=== PATIENT | female | born 1995 | race Caucasian/White ===

== ENCOUNTER 2017-01-11 16:00 | Inpatient (IN) | payer OTHER ==
[~2017-01-11] VITALS: Ht 167.6 cm; Wt 104.3 kg
[~2017-01-11 16:00] MED LIST: CYCL-319 PO; IBUP-1542 PO; LACTATED RINGER'S 1,000 ML IV PRN; PREN1TAB49 PO
[2017-01-11 16:18] VITALS: Ht 167.6 cm; Wt 104.3 kg
[2017-01-11 16:21] VITALS: BP 166/90; PULSE 86; RESP 18
[2017-01-11] MEDS ORDERED: OXYTOCIN 30 UNITS/LR 500 ML IV PRN (17:30)
[2017-01-11] MEDS ORDERED: LIDOCAINE 1% (MPF) 30 ML INJ INJ PRN (17:30)
[2017-01-11] MEDS ORDERED: AMPICILLIN 2 GM/NS (PMX) 100 ML IV ONE (17:30)
[2017-01-11] MEDS ORDERED: LABETALOL HCL 20MG INJ IV ONE (17:30)
[2017-01-11] MEDS ORDERED: MISOPROSTOL 200 MCG TAB PR PRN (17:30)
[2017-01-11] MEDS ORDERED: OXYTOCIN 30 UNITS/LR 500 ML IV SCH (17:30)
[2017-01-11] MEDS ORDERED: METHYLERGONOVINE 0.2 MG INJ IM PRN (17:30)
[2017-01-11] MEDS ORDERED: CARBOPROST 250 MCG INJ IM PRN (17:30)
[2017-01-11] MEDS ORDERED: BUTORPHANOL 2 MG INJ IV PRN (17:30)
[2017-01-11] MEDS ORDERED: MAGNESIUM SULFATE 4 GM/100 ML 100 ML IVPB ONE (17:30)
[2017-01-11] MEDS ORDERED: IBUPROFEN 600 MG TAB PO PRN (17:30)
--- NOTE | 2017-01-11 17:32 | HP ---
Date/Time of Note Date/Time of Note DATE: 01/11/17 TIME: 17:29 OB - History Hx of Present Free Text/Dictation 35 years old female 4 para 2 history one previous vaginal delivery and one section EDC of January 20, 2017 admitted to [facility] in labor she was originally was a scheduled for repeat C- section for January 20 but since she started having contractions today she came to the hospital being prepared after complete evaluation for repeat Estimated Due Date: Jan 20, 2017 : 4 Para: 2 Care: Limited Care Ultrasounds: Normal mid trimester US Obstetrical Complications: Gestational Diabetes Medical Complications: None Past Family/Social History * Past Medical, Surgical, Family and Obstetric Histories reviewed from chart. Rubella: immune RPR/VDRL: Negative GBS Status: Negative HBsAG: Negative OB Admission Exam Vital Signs Vital Signs Vital Signs Date Time Temp Pulse Resp B/P Pulse Ox O2 Delivery O2 Flow Rate FiO2 01/11/17 16:21 98.1 86 18 166/90 Physical Exam HEENT: WNL Heart: Rhythm Normal Abdomen: WNL Extremities: Normal Reflexes: Normal Accelerations: Accelerations Present Varibility: Moderate Contractions on Admission: < 5 Minutes Apart Intensity: Moderate LEONIDES VELA MD Jan 11, 2017 17:32
[2017-01-11] MEDS: LACTATED RINGER'S 1,000 ML IV SCH (17:40)
[2017-01-11 18:03] LABS: ABNORMAL IP MESSAGE 1; BASOPHILS % 0.3 % (0.0-2.0); EOSINOPHILS % 0.4 % (0.0-7.0); HEMATOCRIT 39.5 % (37.0-47.0); HEMOGLOBIN 13.7 g/dl (12.0-16.0); LYMPHOCYTES # 2.9 10^3/ul (0.8-2.9); LYMPHOCYTES % 29.7 % (15.0-51.0); MEAN CORPUSCULAR HEMOGLOBIN 29.2 pg (29.0-33.0); MEAN CORPUSCULAR HGB CONC 34.7 g/dl (32.0-37.0); MEAN CORPUSCULAR VOLUME 84.2 fl (82.0-101.0); MEAN PLATELET VOLUME 13.3 fl (7.4-10.4); MONOCYTE # 0.6 10^3/ul (0.3-0.9); MONOCYTES % 6.7 % (0.0-11.0); NEUTROPHILS % 62.3 % (39.0-77.0); PLATELET COUNT 219 10^3/UL (140-415); RED BLOOD COUNT 4.69 10^6/ul (4.20-5.40); WHITE BLOOD COUNT 9.6 10^3/ul (4.8-10.8)
[2017-01-11 18:14] LABS: INR 0.89; PT RATIO 0.9
[2017-01-11 18:15] LABS: POSITIVE DIFF @See below
[2017-01-11 18:16] LABS: ALBUMIN 3.6 g/dl (3.3-4.9); BILIRUBIN,INDIRECT 0.2 mg/dl (0-1.1); BILIRUBIN,TOTAL 0.2 mg/dl (0.2-1.3); CREATININE 0.46 mg/dl (0.44-1.00); POTASSIUM 4.1 mmol/L (3.5-5.1); TOTAL PROTEIN 7.2 g/dl (6.1-8.1); URIC ACID 4.4 mg/dl (3.1-7.9)
--- NOTE | 2017-01-11 18:20 | OPR ---
Operative Report Planned Procedure Free Text/Dictation 38 weeks 5 days history of previous admitted to [facility] in active labor being prepared for repeat Procedure date Jan 11, 2017 Procedure(s) Repeat Performed by: LEONIDES VELA MD Assisting provider: DARIEN RAYA MD Anesthesiologist: SADIA ROMAN MD Pre-procedure diagnosis The 8 weeks 5 days , history of previous in labor, breech presentation Anesthesia Type: spinal Procedure Description Under satisfactory spinal [] anesthesia, the patient was prepped and draped and placed in a supine position, tilted to the left. Pfannenstiel incision was made , carried through the subcutaneous tissue. Bleeders brought under control with electrocautery. Fascia incised to the length of the incision. Rectus muscles from the fascia, divided midline. Peritoneum exposed, entered through a transverse incision. Exploration of abdomen revealed gravid uterus. Normal- appearing tubes and ovaries bladder flap was developed. Transverse incision was made in the lower segment of the uterus. Amniotic sac ruptured. Clear [] amniotic fluid noted. Live baby boy was delivered from anthony breech presentation shoulders delivered without any difficulty head delivered with Mauriceau maneuver [] Nasal oropharyngeal suction was performed. The baby was handed to the team for immediate attention. placenta delivered manually intact. Uterine cavity was cleaned with wet sponge and drainage established. Uterus closed in 2 layers using [] Monocryl #1 in continuous fashion. Peritoneal cavity irrigated with warm saline. Sponge, needle and instrument count reported to be correct. Abdominal peritoneum closed with 2-0 chromic continuously. Rectus muscle approximated with [few interrupted 2-0 chromic catgut]. Fascia closed with [] #1 PDA, subcutaneous tissue approximated with several interrupted 2-0 chromic catgut skin closed with chino. Estimated blood loss 6-700 cc. Urine bag contained [200]mL of clear urine patient tolerated procedure well transferred to recovery room in good condition Post-Procedure Findings: Live Baby boy 9 and 9 Specimen removed: No Complications: None Disposition: other (Recovery) Physician Certification I, the undersigned physician, hereby certify that I have discussed the procedure described in this consent form with this patient (or the patient's legal sales and merchandising representative), including: * The risk and benefits of the procedure; * Any adverse reactions that may reasonably be expected to occur; * Any alternative efficacious methods of treatment which may be medically viable ; * The potential problems that may occur during recuperation; * Potential for blood transfusion and associated risks/benefits; and * Any research or economic interest I may have regarding this treatment. I further certify that the patient/legally responsible person was encouraged to ask question and that all questions were answered. LEONIDES VELA MD Jan 11, 2017 18:20
--- NOTE | 2017-01-11 18:22 | RADRPT ---
PROCEDURE: US OB LIMITED FOR WEIGHT EVALUATION CLINICAL INDICATION: Induction TECHNIQUE: Multiple sonographic images of the pelvis were obtained. Transabdominal imaging only w as performed. The images were reviewed on a PACS workstation. Image quality: Satisfactory. COMPARISON: No prior studies are available for comparison. FINDINGS: Roberts : Number of fetuses: 1 GENERAL EVALUATION: Cardiac activity: Present. FHR by 163 bpm Presentation: Cephalic. Placenta: Placenta site: Posterior right. Heterogeneous with calcifications and indentations in keep ing with mature grade 2 placenta. Cervix (transabdominal): Not evaluated DATING: EGA by dates: 36 wks 6 days SCOTTIE by dates: February 02, 2017 BIOMETRY: BPD = 9.3 cm , 37 wk 6 d (86th percentile) HC = 33.3cm , 38 wk 0 d (52nd percentile) AC = 37 cm , 41 wk 1 d (greater than 97%) FL = 7.5 cm , 38 wk 4d (87th percentile) Composite sonographic age: 38 wk 6 d plus or minus 2 weeks 5 days Estimated due date by ultrasound measurements: January 19, 2017 EFW 3885 grams, greater than 97 percentile for gestational age. ANATOMY: Not performed IMPRESSION: 1. Single living fetus in the cephalic presentation. 2. Fetus is large for dates. Estimated weight is 3885 grams that is greater than the 97th perc entile for gestational age. 3. Posterior right placenta is mature (grade 2). < RPTAT: HCTS Physician Anju Date Time Electronically viewed and signed by Mark Philippe Physician on 01/11/2017 18:21 CS/
--- NOTE | 2017-01-11 18:24 | RADRPT ---
PROCEDURE: OB ultrasound for biophysical profile CLINICAL INDICATION: Induction. TECHNIQUE: Multiple sonographic images of the pelvis were obtained. Transabdominal view of the gr avid uterus are available for review. The images were reviewed on a PACS workstation. COMPARISON: None FINDINGS: breathing movement = 2/2 tone = 2/2 motion = 2/2 Amniotic fluid = 2/2 CHUY = 19.6 cm Single live intrauterine in cephalic presentation with cardiac activity (152 bpm). Posterior right placenta, grade 2 IMPRESSION: 1. Single viable intrauterine gestation in cephalic presentation. 2. Biophysical profile = 8/8. 3. CHUY = 19.6 cm. RPTAT: HCTS Physician Anju Date Time Electronically viewed and signed by Mark Philippe Physician on 01/11/2017 18:23 CS/
[2017-01-11] MEDS: MAGNESIUM SULFATE 20 GM/500 ML 500 ML IV SCH (18:33)
[2017-01-11 18:49] LABS: ADD UMIC YES; UR ASCORBIC ACID NEGATIVE (NEGATIVE); UR BACTERIA FEW /HPF (NONE SEEN); UR BILIRUBIN (Dip) NEGATIVE (NEGATIVE); UR BLOOD (Dip) 3+ mg/dL (NEGATIVE); UR CLARITY SLIGHTLY CLOUDY (CLEAR); UR COLOR YELLOW (YELLOW); UR GLUCOSE (Dip) NEGATIVE (NEGATIVE); UR KETONES (Dip) NEGATIVE (NEGATIVE); UR LEUKOCYTE ESTERASE (Dip) TRACE Leu/ul (NEGATIVE); UR NITRITE (Dip) NEGATIVE (NEGATIVE); UR RBC > 182 /HPF (0-5); UR SPECIFIC GRAVITY (Dip) 1.015 (1.003-1.030); UR SQUAMOUS EPITHELIAL CELL FEW /HPF (FEW); UR TOTAL PROTEIN (Dip) 2+ mg/dl (NEGATIVE); UR UROBILINOGEN (Dip) NEGATIVE (NEGATIVE)
[2017-01-11] MEDS ORDERED: FENTAnyl 2MCG/ML-ROPIV 0.2% 100 ML ONE (20:48)
[2017-01-11] MEDS: ACCU-CHEK XX SCH (21:44)
[2017-01-11] MEDS: AMPICILLIN 1 GM/NS (PMX) 50 ML IV SCH (21:44)
[2017-01-11] MEDS ORDERED: NALOXONE (0.4 MG/ML) INJ IV PRN (22:00)
[2017-01-11] MEDS ORDERED: DIPHENHYDRAMINE 50 MG INJ IV PRN (22:00)
[2017-01-11] MEDS ORDERED: FENTAnyl 2MCG/ML-ROPIV 0.2% 100 ML BAG EPI SCH (22:00)
[2017-01-11] MEDS ORDERED: ONDANSETRON 4 MG INJ IV PRN (22:00)
[2017-01-11] MEDS: DEXTROSE 5%-LR 1,000 ML IV SCH (22:51)
[2017-01-12] VITALS (15 sets, daily range): BP systolic 117–166; BP diastolic 68–93; PULSE 68–81; RESP 18–20
[2017-01-12] MEDS: DEXTROSE 5%-LR 1,000 ML IV SCH (01:15)
[2017-01-12] MEDS: AMPICILLIN 1 GM/NS (PMX) 50 ML IV SCH ×2 (01:44→05:30)
[2017-01-12] MEDS: LACTATED RINGER'S 1,000 ML IV SCH (01:44)
[2017-01-12] MEDS: ACCU-CHEK XX SCH ×4 (01:44→23:20)
[2017-01-12] MEDS: MAGNESIUM SULFATE 20 GM/500 ML 500 ML IV SCH ×3 (04:20→23:30)
[2017-01-12] MEDS: OXYTOCIN 30 UNITS/LR 500 ML IV SCH ×6 (04:57→23:00)
[2017-01-12] MEDS ORDERED: MINERAL OIL LIGHT 10 ML VIAL TOP ONE (05:00)
--- NOTE | 2017-01-12 05:24 | LDN ---
Date/Time of Note Date/Time of Note DATE: 01/12/17 TIME: 05:18 Delivery Summary A2DM at 37w normal vaginal delivery Weeks of Gestation 37w Placenta Delivered: Spontaneously Meconium: none Perineal laceration: 1 Laceration repair: bilateral periurethral laceration 0000ch Anesthesia type: Epidural Estimated blood loss: 200 Sponge & Needle done & correct: Yes All needle counts correct: Yes Any foreign bodies felt in the: No Problems: Infant Delivery Information Sex Sex: female Apgars 1 Minute: 8 5 Minute: 9 Suctioning Nose & mouth suctioned at arik: Yes Delee suction performed: No Umbilical Cord Umbilical cord with: 3 Vessels Cord presentations: no nuchal cord Cord Blood was obtained: Yes Mother & Baby Disposition Disposition Mom & Baby to Maternity; Good: Yes Mom transferred to: Other () Baby to NICU: No JOANNA FORDE MD Jan 12, 2017 05:24
--- NOTE | 2017-01-12 05:50 | HP ---
Date/Time of Note Date/Time of Note DATE: 01/12/17 TIME: 05:26 OB - History Hx of Present Free Text/Dictation 21 y.o was admitted for induction of labor at 36w6d for chronic hypertension and A2DM and cholesstasis. on admission ,initial VE 1/50%/-2 EFM showed 5-7 min apart, random BS 77 pt was placed on magnesium sulfate and pitocin was initiated for induction/ augmentation. add; patient was placed on babaspirin, also she was on ursodiol. HbA1c 6.1 Chief Complaint: induction of labor Estimated Due Date: Feb 02, 2017 : 2 Para: 1 Spontaneous : 0 Therapeutic : 0 Care: Good Care Ultrasounds: Normal mid trimester US Obstetrical Complications: Gestational Diabetes, Other (chronic hypertension, cholestasis) Medical Complications: None Past Family/Social History * Past Medical, Surgical, Family and Obstetric Histories reviewed from chart. Blood Type: O+ Rubella: immune RPR/VDRL: Negative GBS Status: Negative HBsAG: Negative OB Admission Exam Vital Signs Vital Signs Vital Signs Date Time Temp Pulse Resp B/P Pulse Ox O2 Delivery O2 Flow Rate FiO2 01/11/17 16:21 98.1 86 18 166/90 Physical Exam HEENT: WNL Heart: Rhythm Normal Lungs: Clear, Equal Abdomen: WNL Extremities: Normal Reflexes: Normal Cervical Dilatation: 1cm Effacement: 50% Station: -2 Membranes: Intact Amniotic Fluid: Unevaluable Heart Rate: 130's Accelerations: Accelerations Present Decelerations: No Decelerations Varibility: Moderate Contractions on Admission: 6-10 Minutes Apart Intensity: Mild Last 72 hourBlood Glucose Bedside Glucose - 72 Hours Test 01/11/17 18:06 01/11/17 21:49 01/12/17 01:43 Bedside Glucose 74mg/dL (70-220) 87mg/dL (70-220) 87mg/dL (70-220) Last 72 hours Lab Results CBC & BMP 01/11/17 17:35 Liver Function Test 01/11/17 17:35 Alanine Aminotransferase (ALT/SGPT) 37 Albumin 3.6 Alkaline Phosphatase 133 H Aspartate Amino Transf (AST/SGOT) 51 H Direct Bilirubin 0.00 Total Protein 7.2 Magnesium Level Test 01/11/17 23:45 01/12/17 00:48 Magnesium Level 4.8 H 5.0 H OB Assessment/Plan Reason for admission: induction of labor Other Assessment: IUP 36w6d chronic hypertension A2DM cholestasis Plan: Induction Induction Method: per Pitocin Protocol JOANNA FORDE MD Jan 12, 2017 05:45
[2017-01-12] MEDS ORDERED: LABETALOL HCL 20MG INJ IV PRN (08:00)
[2017-01-12] MEDS ORDERED: OXYCODONE/ASPIRIN (4.88/325) TAB PO PRN ×4 (09:15→09:30)
[2017-01-12] MEDS ORDERED: OXYTOCIN 30 UNITS/LR 500 ML IV PRN (09:30)
[2017-01-12] MEDS ORDERED: MISOPROSTOL 200 MCG TAB PR PRN (09:30)
[2017-01-12] MEDS: SENNA/DOCUSATE NA (8.6MG/50MG) TAB PO SCH ×2 (09:30→21:40)
[2017-01-12] MEDS ORDERED: ZOLPIDEM 5 MG TAB PO PRN (09:30)
[2017-01-12] MEDS ORDERED: CARBOPROST 250 MCG INJ IM PRN (09:30)
[2017-01-12] MEDS ORDERED: LANOLIN 7 GM TUBE TOP PRN (09:30)
[2017-01-12] MEDS ORDERED: METHYLERGONOVINE 0.2 MG INJ IM PRN (09:30)
[2017-01-12] MEDS: CEFAZOLIN 2 GM/50 ML (PMX) 50 ML IV SCH ×2 (11:03→18:59)
[2017-01-12] MEDS: WITCH HAZEL/GLYCERIN PAD PR PRN (12:16)
[2017-01-12] MEDS: BENZOCAINE 20% 56 ML SPRAY TOP PRN (12:16)
[2017-01-12] MEDS: IBUPROFEN 600 MG TAB PO SCH ×4 (15:11→23:22)
--- NOTE | 2017-01-12 16:38 | NSTRPT ---
NST Information Datetime Report Generated by CPN: 01/12/2017 16:38 Datetime: 01/09/2017 09:55 NST Information EGA: 36.4 Test Number: 8 Time on Monitor: 01/09/2017 10:22 Time off Monitor: 01/09/2017 10:58 NST Duration (Min): 36 Reason for NST: Diabetes Mellitus; Other Reason for NST Other: A2DM, elevated BP Test and Monitor Explained: Monitor Explained; Test Explained; Verbalized Understanding Temp : 98.0 Pulse: 82 Resp: 18 SBP: 134 DBP: 78 Test Evaluation NST Interventions: PO Hydration; Food Given; Reposition Patient; Acoustic Stimulation; Other Patient States Movement: Present Contraction Frequency: x1, denies FHR Baseline : 135 Variability: Moderate 6-25bpm Accelerations: 15X15 Decelerations: None FHR Category: Category I NST Results: Reactive Comments: Pt to U/S, CHUY 17.3cm, CEPHALIC FBS 78 1104-Pt discharged home with labor precautions, discussed kick counts, follow-up NS T/CHUY appointment given, pt verbalizes understanding and denies any further questions. Electronically Signed By E-Signature: with User ID: [id number] Datetime: 01/05/2017 10:27 NST Information EGA: 36.0 NST Duration (Min): 25 Datetime: 01/02/2017 11:00 NST Information EGA: 35.4 NST Duration (Min): 36 Datetime: 12/29/2016 10:03 NST Information EGA: 35.0 NST Duration (Min): 75 Datetime: 12/26/2016 10:19 NST Information EGA: 34.4 NST Duration (Min): 56 Datetime: 12/22/2016 10:35 NST Information EGA: 34.0 NST Duration (Min): 110 Datetime: 12/19/2016 10:38 NST Information EGA: 33.4 Datetime: 12/15/2016 15:24 NST Information EGA: 33.0 Datetime: 12/15/2016 15:17 NST Duration (Min): 37
[2017-01-13] VITALS (8 sets, daily range): BP systolic 106–148; BP diastolic 56–88; PULSE 65–91; RESP 18
[2017-01-13] MEDS: OXYTOCIN 30 UNITS/LR 500 ML IV SCH ×4 (01:11→11:00)
[2017-01-13] MEDS: CEFAZOLIN 2 GM/50 ML (PMX) 50 ML IV SCH (02:35)
[2017-01-13] MEDS: IBUPROFEN 600 MG TAB PO SCH ×4 (06:32→23:28)
[2017-01-13 08:18] LABS: BASOPHILS % 0.2 % (0.0-2.0); EOSINOPHILS # 0.1 10^3/ul (0.0-0.5); EOSINOPHILS % 0.8 % (0.0-7.0); HEMATOCRIT 31.4 % (37.0-47.0); HEMOGLOBIN 10.5 g/dl (12.0-16.0); LYMPHOCYTES # 2.8 10^3/ul (0.8-2.9); LYMPHOCYTES % 31.2 % (15.0-51.0); MEAN CORPUSCULAR HEMOGLOBIN 28.5 pg (29.0-33.0); MEAN CORPUSCULAR HGB CONC 33.4 g/dl (32.0-37.0); MEAN CORPUSCULAR VOLUME 85.3 fl (82.0-101.0); MEAN PLATELET VOLUME 12.6 fl (7.4-10.4); MONOCYTE # 0.5 10^3/ul (0.3-0.9); MONOCYTES % 5.6 % (0.0-11.0); NEUTROPHIL # 5.6 10^3/ul (1.6-7.5); NEUTROPHILS % 61.6 % (39.0-77.0); PLATELET COUNT 181 10^3/UL (140-415); RED BLOOD COUNT 3.68 10^6/ul (4.20-5.40); RED CELL DISTRIBUTION WIDTH 14.5 % (11.5-14.5); WHITE BLOOD COUNT 9.1 10^3/ul (4.8-10.8)
[2017-01-13] MEDS: SENNA/DOCUSATE NA (8.6MG/50MG) TAB PO SCH ×2 (09:29→20:43)
[2017-01-13] MEDS: MAGNESIUM SULFATE 20 GM/500 ML 500 ML IV SCH ×2 (09:30→19:30)
--- NOTE | 2017-01-13 12:58 | PN ---
Date/Time of Note Date/Time of Note DATE: 01/13/17 TIME: 12:57 OB Subjective Subjective Subjective Post normal vaginal delivery day 1 Afebrile Vital signs stable Abdomen soft Uterus firm Lochia normal Extremity normal Ambulation encouraged LEONIDES VELA MD Jan 13, 2017 12:58
[2017-01-14 04:00] VITALS: BP 117/64; PULSE 67; RESP 18
[2017-01-14] MEDS: MAGNESIUM SULFATE 20 GM/500 ML 500 ML IV SCH (05:30)
[2017-01-14] MEDS: IBUPROFEN 600 MG TAB PO SCH ×3 (05:40→17:52)
[2017-01-14 08:00] VITALS: BP 121/64; PULSE 74; RESP 18
[2017-01-14] MEDS: SENNA/DOCUSATE NA (8.6MG/50MG) TAB PO SCH (09:00)
[2017-01-14] MEDS ORDERED: DIPHTH/TET/ACEL PERTUSS (ADULT) 0.5 ML VIAL IM* ONE (09:00)
--- NOTE | 2017-01-14 11:20 | PD.PPDC ---
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
--- NOTE | 2017-01-14 11:23 | DS ---
Date/Time of Note Date/Time of Note DATE: 01/14/17 TIME: 11:21 Discharge Summary Admission/Discharge Info Admit Date/Time Jan 11, 2017 at 16:09 Discharge Date/Time January 14, 2017 at 11:00 Procedures Normal vaginal delivery Hx of Present Illness Term Hospital Course Satisfactory recovery uneventful Home Meds Active Scripts Cyclobenzaprine Hcl* (Cyclobenzaprine Hcl*) 10 Mg Tablet, 10 MG PO TID, #15 TAB Prov:MICAH SANABRIA PA-C 09/15/15 Ibuprofen* (Motrin*) 600 Mg Tab, 600 MG PO Q6, #30 TAB Prov:MICAH SANABRIA PA-C 09/15/15 Reported Medications Vits W-Ca,Fe,Fa(<1MG) () 1 Tab Tablet, 1 TAB PO DAILY 08/08/12 Follow-up Plan instructions given appointment clinic in 2 weeks Primary Care Provider [facility] Pending Labs Laboratory Tests Test 01/13/17 15:19 01/13/17 20:41 01/14/17 08:28 Bedside Glucose 89mg/dL (70-220) 84mg/dL (70-220) 89mg/dL (70-220) LEONIDES VELA MD Jan 14, 2017 11:23
--- NOTE | 2017-01-14 11:27 | DS ---
Date/Time of Note Date/Time of Note DATE: 01/14/17 TIME: 11:25 Discharge Summary Admission/Discharge Info Admit Date/Time Jan 11, 2017 at 16:09 Discharge Date/Time January 14 2017 at 11 AM Discharge Diagnosis Day 2 post normal vaginal delivery Patient Condition: Good Procedures Normal vaginal delivery Hx of Present Illness Term Hospital Course Satisfactory recovery uneventful Home Meds Active Scripts Cyclobenzaprine Hcl* (Cyclobenzaprine Hcl*) 10 Mg Tablet, 10 MG PO TID, #15 TAB Prov:MICAH SANABRIA PA-C 09/15/15 Ibuprofen* (Motrin*) 600 Mg Tab, 600 MG PO Q6, #30 TAB Prov:MICAH SANABRIA PA-C 09/15/15 Reported Medications Vits W-Ca,Fe,Fa(<1MG) () 1 Tab Tablet, 1 TAB PO DAILY 08/08/12 Follow-up Plan instructions given appointment clinic in 2 weeks Primary Care Provider [facility] Time spent on discharge: < 30 minutes Pending Labs Laboratory Tests Test 01/13/17 15:19 01/13/17 20:41 01/14/17 08:28 Bedside Glucose 89mg/dL (70-220) 84mg/dL (70-220) 89mg/dL (70-220) LEONIDES VELA MD Jan 14, 2017 11:27
[2017-01-14] MEDS: WITCH HAZEL/GLYCERIN PAD PR PRN (19:00)
[2017-01-14] MEDS: BENZOCAINE 20% 56 ML SPRAY TOP PRN (19:00)
== END 2017-01-14 19:00 | disposition home or self-care (01) | DRG 774 ==
LOC: L-D 16:09 → PP1 01-12 08:51
PROVIDERS: ADMIT Obstetrics & Gynecology; ATTEND Obstetrics & Gynecology
PROC: 10E0XZZ Delivery of Products of Conception, External Approach (ICD-10-PCS; principal; 2017-01-12)
PROC: 0UQMXZZ Repair Vulva, External Approach (ICD-10-PCS; 2017-01-12)
PROC: 3E033VJ Introduction of Other Hormone into Peripheral Vein, Percutaneous Approach (ICD-10-PCS; 2017-01-12)
DX: O71.82 Other specified trauma to perineum and vulva (principal); O10.92 Unspecified pre-existing hypertension complicating childbirth; K83.1 Obstruction of bile duct; O24.429 Gestational diabetes mellitus in childbirth, unspecified control; O26.62 Liver and biliary tract disorders in childbirth; E66.01 Morbid (severe) obesity due to excess calories; O99.214 Obesity complicating childbirth; Z68.37 Body mass index [BMI] 37.0-37.9, adult; Z3A.37 37 weeks gestation of pregnancy; Z37.0 Single live birth
CPT/HCPCS: 62319; 76815; 76818; 80053; 81001; 82962; 83735; 84560; 85025; 85384; 85610; 85730; 86592; 86900; 86901; 87086; 87340; 90715; 99464; J0290; J0690; J2590; J3010; J3475; J7120; J7121